=== PATIENT | female | born 1970 | race Caucasian/White ===

== ENCOUNTER 2016-05-08 10:30 | Emergency (ER) | payer OTHER ==
[~2016-05-08] VITALS: Ht 165.1 cm; Wt 62.6 kg
[2016-05-08 10:37] VITALS: TEMP 36.8; Ht 165.1 cm; Wt 62.6 kg
[2016-05-08] MEDS ORDERED: CITA20TA9 PO (11:42)
[2016-05-08] MEDS ORDERED: SODIUM CHLORIDE 0.9% 1000ML 1,000 ML IV STA (12:25)
--- NOTE | 2016-05-08 12:42 | EMERGENCY ROOM VISIT NOTE ---
History Report prepared by Demar: Elina Ritter Under the Supervision of: Dr. Marvin Araya D.O. First contact with patient: 11:40 Chief Complaint: CHEST PAIN Stated Complaint: CHEST PAINS Nursing Triage Summary: Pt c/o chest pain under right arm and around breast, states "It's been everywhere, I had chest pain in the past" "comes and goes but can last a couple hours". Denies SOB, diaphoresis, nausea, dizzines with chest pain. History of Present Illness The patient is a 45 year old female who presents to the Emergency Room with complaints of intermittent right sided chest pain that began one month ago, but became persistent three days ago. She currently rates her discomfort as a 2/10 in severity, but at it's worse, she rates it as a 6/10 in severity. The patient states that one month ago while at work, she noticed central chest pain. She states that the pain eventually subsided on it's own, but states that over the last month it has come and gone intermittently. The patient states that she noticed the pain start three days ago, but states that it has been persistent since. She states that when she is parallel with the floor she has noticed increased chest pain with lying flat or a deep breath. The patient states that she originally thought the pain was musculoskeletal because the she was scrubbing throughout the day. She states that she does cardio three times a week. The patient states that last night she thought the pain was at it's worst, so she took Tylenol that alleviated her symptoms. She states that her pain was there this morning, so she called her PCP and was instructed to come to the emergency department for further work up. The patient denies any recent cough or cold and denies getting her flu shot. She denies any tobacco or recreational drug use. The patient notes that she is an occasional drinker. She states that her last menstrual cycle was a few weeks ago. The patient denies any personal or family history of PEs or DVTs. She notes a family history of heart disease, but denies it being prior to the age of 55. The patient denies any family history of unexplained cardiac . She notes a personal history of mild depression, noting that she is on Celexa for it. Source of History: patient Onset: one month ago, persistent three days ago Position: chest Symptom Intensity: 2/10, at it's worst 09/19 Timing: intermittent Modifying Factors (Worsening): breathing (deep), other (lying flat) Modifying Factors (Relieving): tylenol Review of Systems See above for pertinent positives & negatives. A total of 10 systems reviewed and were otherwise negative. Past Medical & Surgical Medical Problems: (1) Depression Family History FHx: heart disease Social History Smoking Status: Never Smoker Marital Status: single Occupation Status: employed Current/Historical Medications Scheduled Acetaminophen (Acetaminophen), 1 TAB PO Q6 Azithromycin (Zithromax Z-Jarod), 1 PKT PO UD Citalopram Hydrobromide (Celexa), 20 MG PO DAILY Allergies Coded Allergies: Cephalosporins (Verified Allergy, Mild, RASH, 05/08/16) Latex (Verified Allergy, Mild, rash, 05/08/16) Physical Exam Vital Signs Date Time Temp Pulse Resp B/P Pulse Ox O2 Delivery O2 Flow Rate FiO2 05/08/16 14:13 78 05/08/16 12:45 65 16 124/62 100 Room Air 05/08/16 11:03 74 05/08/16 10:37 36.8 62 17 117/77 100 Room Air Physical Exam GENERAL: Patient is well appearing and in no acute distress. HEENT: No acute trauma, normocephalic atraumatic, mucous membranes moist, no nasal congestion, no scleral icterus. NECK: No stridor, no adenopathy, no meningismus, trachea is midline. LUNGS: No dyspnea. Clear to auscultation and equal bilaterally. No wheeze, no rhonchi. HEART: Regular rate and rhythm. No murmurs, rubs, gallops appreciated. ABDOMEN: Soft, nontender, bowel sounds positive, no masses appreciated, no peritonitis. BACK: No midline tenderness, no CVA tenderness EXTREMITIES: Normal motion all extremities, no cyanosis, no edema. NEUROLOGIC: Alert and oriented, no acute motor or sensory deficits, no focal weakness, cranial nerves grossly intact. SKIN: No rash, no jaundice, no diaphoresis. Medical Decision & Procedures ER Provider Diagnostic Interpretation: X ray results and stated below per my interpretation and radiologist interpretation. Other radiology results and stated below per my review and radiologist interpretation: CHEST 2 VIEWS ROUTINE CLINICAL HISTORY: Chest pain. COMPARISON STUDY: No previous studies for comparison. FINDINGS: Lung volumes are normal. There is no pneumothorax or pleural effusion. Cardiac size is normal. Mediastinal contours are normal. There is no evidence of pulmonary edema. There is a vague density within the lateral aspect of the right middle lower lung that measures approximately 4.6 cm. This probably reflects overlying soft tissues. Airspace opacity could appear similar. IMPRESSION: Vague 4.6 cm peripheral opacity within the right mid lung. This probably reflects overlying soft tissue artifact. Airspace opacity could appear similar. Follow-up PA and lateral chest radiographs in one month are recommended. Electronically signed by: Hamilton Cohen M.D. 05/08/2016 1:09 PM Dictated Date/Time: 05/08/2016 1:[address] ANGIOGRAM OF THE CHEST CLINICAL HISTORY: Atypical chest pain. Abnormal chest x-ray. COMPARISON STUDY: Chest x-ray dated 05/08/2016. TECHNIQUE: Following the IV administration of 92 cc of Optiray 320, CT angiogram of the chest was performed from the upper abdomen to the thoracic inlet utilizing the pulmonary embolus protocol. Images are reviewed in the axial, sagittal, and coronal planes. 3-D MIPS images are created and assessed. IV contrast was administered without complication. CT DOSE: 259.93 mGycm FINDINGS: Thyroid: Imaged portions of the thyroid gland are normal in size and attenuation. Thoracic aorta: The thoracic aorta is normal in caliber and demonstrates standard 3-vessel arch anatomy. No dissection is seen. Pulmonary vasculature: The pulmonary trunk is normal in caliber. There are no filling defects identified in main, lobar, or segmental pulmonary branches to suggest pulmonary embolus. Heart: The heart is normal in size and configuration, and without pericardial effusion. Lungs and pleural spaces: There is a trace right pleural effusion and bibasilar atelectasis. No airspace consolidation is identified typical for pneumonia. Minimal peribronchial thickening is observed. The trachea and central airways are clear. Mediastinum: There is no mediastinal lymphadenopathy. [place]: Clear. Axillae: There is no axillary lymphadenopathy. Upper abdomen: Partially visualized upper abdominal viscera is within normal limits. Skeletal structures: No lytic or blastic bony lesions are seen. IMPRESSION: 1. There is no evidence of pulmonary embolus in the main, lobar, or segmental pulmonary arteries. 2. There is a trace right pleural effusion. No airspace consolidation is identified typical for pneumonia. Mild peribronchial thickening suggests reactive airway disease. Clinical correlation will be required. 3. The right subpleural opacity questioned by x-ray could not be corroborated by chest CT and likely represented overlying soft tissue artifact. Electronically signed by: Remy Sanford M.D. 05/08/2016 3:13 PM Dictated Date/Time: 05/08/2016 3:08 PM Laboratory Results 05/08/16 13:13 Red Blood Count 4.75, Mean Corpuscular Volume 89.7, Mean Corpuscular Hemoglobin 31.2, Mean Corpuscular Hemoglobin Concent 34.7, Mean Platelet Volume 10.0, Neutrophils (%) (Auto) 66.2, Lymphocytes (%) (Auto) 26.7, Monocytes (%) (Auto) 5.7, Eosinophils (%) (Auto) 1.1, Basophils (%) (Auto) 0.1, Neutrophils # (Auto) 5.67, Lymphocytes # (Auto) 2.29, Monocytes # (Auto) 0.49, Eosinophils # (Auto) 0.09, Basophils # (Auto) 0.01 05/08/16 13:13 Test 05/08/16 12:43 05/08/16 13:13 05/08/16 14:41 Urine Color YELLOW Urine Appearance CLEAR (CLEAR) Urine pH 5.0 (4.5-7.5) Urine Specific [place] 1.010 (1.000-1.030) Urine Protein NEG (NEG) Urine Glucose (UA) NEG (NEG) Urine Ketones 1+ (NEG) Urine Occult Blood NEG (NEG) Urine Nitrite NEG (NEG) Urine Bilirubin NEG (NEG) Urine Urobilinogen NEG (NEG) Urine Leukocyte Esterase NEG (NEG) Urine Test NEG (NEG) White Blood Count 8.57 K/uL (4.8-10.8) Red Blood Count 4.75 M/uL (4.2-5.4) Hemoglobin 14.8 g/dL (12.0-16.0) Hematocrit 42.6 % (37-47) Mean Corpuscular Volume 89.7 fL (80-100) Mean Corpuscular Hemoglobin 31.2 pg (25-34) Mean Corpuscular Hemoglobin Concent 34.7 g/dl (32-36) Platelet Count 233 K/uL (130-400) Mean Platelet Volume 10.0 fL (7.4-10.4) Neutrophils (%) (Auto) 66.2 % Lymphocytes (%) (Auto) 26.7 % Monocytes (%) (Auto) 5.7 % Eosinophils (%) (Auto) 1.1 % Basophils (%) (Auto) 0.1 % Neutrophils # (Auto) 5.67 K/uL (1.4-6.5) Lymphocytes # (Auto) 2.29 K/uL (1.2-3.4) Monocytes # (Auto) 0.49 K/uL (0.11-0.59) Eosinophils # (Auto) 0.09 K/uL (0-0.5) Basophils # (Auto) 0.01 K/uL (0-0.2) RDW Standard Deviation 38.9 fL (36.4-46.3) RDW Coefficient of Variation 12.0 % (11.5-14.5) Immature Granulocyte % (Auto) 0.2 % Immature Granulocyte # (Auto) 0.02 K/uL (0.00-0.02) Anion Gap 11.0 mmol/L (3-11) Est Creatinine Clear Calc Drug Dose 63.9 ml/min Estimated GFR () 79.6 Estimated GFR (Non- 68.7 BUN/Creatinine Ratio 9.4 (10-20) Calcium Level 8.8 mg/dl (8.5-10.1) Total Bilirubin 0.6 mg/dl (0.2-1) Direct Bilirubin 0.1 mg/dl (0-0.2) Aspartate Amino Transf (AST/SGOT) 13 U/L (15-37) Alanine Aminotransferase (ALT/SGPT) 19 U/L (12-78) Alkaline Phosphatase 58 U/L (45-117) Total Protein 7.3 gm/dl (6.4-8.2) Albumin 4.1 gm/dl (3.4-5.0) Lipase 212 U/L (73-393) Bedside Troponin I 0.000 ng/ml (0-0.045) Laboratory results as reviewed by me. Medications Administered Medications (Trade) Dose Ordered Sig/Mely Route Start Time Stop Time Status Last Admin Dose Admin Sodium Chloride (Nss 1000ml) 1,000 ml @ 999 mls/hr Q1H1M STAT IV 05/08/16 12:25 05/08/16 13:25 DC 05/08/16 12:39 999 MLS/HR ECG Indication: chest pain Rate (beats per minute): 60 Rhythm: normal sinus Findings: other (normal axis, normal intervals) Comparison ECG Date: no prior available ED Course 1225: Ordered Sodium Chloride 1000 ml @ 999 mls/hr IV. 1233: The patient was evaluated in room C8. A complete history and physical exam was performed. 1413: I reevaluated the patient and she is resting comfortably. I discussed the exam findings with her. She is going to have a CT scan. 1559: I reevaluated the patient and she is resting comfortably. I discussed the exam findings with her and I discussed the treatment plan. She verbalized complete understanding and agreement. She is ready to go home. Medical Decision Differential diagnosis: Etiologies such as cardiac ischemia, aortic dissection, pulmonary embolism, pneumonia, pneumothorax, musculoskeletal, infections, pericarditis, myocarditis , esophageal rupture, gastrointestinal, as well as others were entertained. Patient is a 45-year-old female with chief complaint of right-sided chest pain who does not have any high risk factors for cardiac disease, no family history, no tobacco use, exercises regularly. She denies having any upper respiratory cold or sore throat recently. Chest x-ray revealed a possible density in the right long in the area where she was symptomatic. A chest CT was undertaken to further classify this density, it was not seen on CT scan, there was a trace pleural effusion which may represent apparent small parapneumonic effusion, accordingly I will place the patient on a Z-Jarod and ibuprofen for chest pain and to follow-up with her primary care provider in 1-2 weeks. Impression Primary Impression: Pneumonia Additional Impressions: Pleural effusion on right Pleurisy with effusion Scribe Attestation The scribe's documentation has been prepared under my direction and personally reviewed by me in its entirety. I confirm that the note above accurately reflects all work, treatment, procedures, and medical decision making performed by me. Departure Information Dispostion Home / Self-Care Prescriptions Acetaminophen (ACETAMINOPHEN) 500 Mg Tab 1 TAB PO Q6 for 15 Days, #60 TAB Prov: Marvin Araya, D.O. 05/08/16 Azithromycin (ZITHROMAX Z-JAROD) 250 Mg Tab 1 PKT PO UD for 5 Days, #6 TAB Prov: Marvin Araya, D.O. 05/08/16 Referrals Aditi Roa DO (PCP) Forms HOME CARE DOCUMENTATION FORM, IMPORTANT VISIT INFORMATION Patient Instructions ED Chest Pain Pleurisy, ED Pneumonia, [facility] Additional Instructions Follow-up with your primary care provider in 2-3 weeks for repeat chest x-ray. Finish the antibiotics Return for severe chest pain, passing out, or any other concerns Use Tylenol as needed for the chest pain. Problem Qualifiers
[2016-05-08 13:04] LABS: URINE APPEARANCE CLEAR (CLEAR); URINE BILIRUBIN NEG (NEG); URINE COLOR YELLOW; URINE NITRITE NEG (NEG); UROBILINOGEN NEG (NEG)
[2016-05-08 13:06] LABS: MANUAL MICROSCOPIC REQUIRED? NO; REVIEW REQ? NO
--- NOTE | 2016-05-08 13:11 | DIAGNOSTIC IMAGING REPORT ---
CHEST 2 VIEWS ROUTINE CLINICAL HISTORY: Chest pain. COMPARISON STUDY: No previous studies for comparison. FINDINGS: Lung volumes are normal. There is no pneumothorax or pleural effusion. Cardiac size is normal. Mediastinal contours are normal. There is no evidence of pulmonary edema. There is a vague density within the lateral aspect of the right middle lower lung that measures approximately 4.6 cm. This probably reflects overlying soft tissues. Airspace opacity could appear similar. IMPRESSION: Vague 4.6 cm peripheral opacity within the right mid lung. This probably reflects overlying soft tissue artifact. Airspace opacity could appear similar. Follow-up PA and lateral chest radiographs in one month are recommended. Electronically signed by: Hamilton Cohen M.D. 05/08/2016 1:09 PM Dictated Date/Time: 05/08/2016 1:05 PM
[2016-05-08 13:21] LABS: BASO % 0.1 %; BASO ABS # 0.01 K/uL (0-0.2); COMPLETE YES; EOS % 1.1 %; HEMATOCRIT 42.6 % (37-47); IG% 0.2 %; LYMPH % 26.7 %; LYMPH ABS # 2.29 K/uL (1.2-3.4); MEAN CELL VOLUME 89.7 fL (80-100); MEAN CORPUSCULAR HEMOGLOBIN 31.2 pg (25-34); MEAN CORPUSCULAR HGB CONC 34.7 g/dl (32-36); MONO % 5.7 %; NEUT % 66.2 %; PLATELET COUNT 233 K/uL (130-400); RED BLOOD COUNT 4.75 M/uL (4.2-5.4); WHITE BLOOD COUNT 8.57 K/uL (4.8-10.8)
[2016-05-08 13:39] LABS: BUN/CREATININE RATIO 9.4 (10-20); CALCIUM 8.8 mg/dl (8.5-10.1); CREATININE 0.98 mg/dl (0.60-1.20); POTASSIUM 3.5 mmol/L (3.5-5.1)
--- NOTE | 2016-05-08 15:14 | DIAGNOSTIC IMAGING REPORT ---
CT ANGIOGRAM OF THE CHEST CLINICAL HISTORY: Atypical chest pain. Abnormal chest x-ray. COMPARISON STUDY: Chest x-ray dated 05/08/2016. TECHNIQUE: Following the IV administration of 92 cc of Optiray 320, CT angiogram of the chest was performed from the upper abdomen to the thoracic inlet utilizing the pulmonary embolus protocol. Images are reviewed in the axial, sagittal, and coronal planes. 3-D MIPS images are created and assessed. IV contrast was administered without complication. CT DOSE: 259.93 mGycm FINDINGS: Thyroid: Imaged portions of the thyroid gland are normal in size and attenuation. Thoracic aorta: The thoracic aorta is normal in caliber and demonstrates standard 3-vessel arch anatomy. No dissection is seen. Pulmonary vasculature: The pulmonary trunk is normal in caliber. There are no filling defects identified in main, lobar, or segmental pulmonary branches to suggest pulmonary embolus. Heart: The heart is normal in size and configuration, and without pericardial effusion. Lungs and pleural spaces: There is a trace right pleural effusion and bibasilar atelectasis. No airspace consolidation is identified typical for pneumonia. Minimal peribronchial thickening is observed. The trachea and central airways are clear. Mediastinum: There is no mediastinal lymphadenopathy. [place]: Clear. Axillae: There is no axillary lymphadenopathy. Upper abdomen: Partially visualized upper abdominal viscera is within normal limits. Skeletal structures: No lytic or blastic bony lesions are seen. IMPRESSION: 1. There is no evidence of pulmonary embolus in the main, lobar, or segmental pulmonary arteries. 2. There is a trace right pleural effusion. No airspace consolidation is identified typical for pneumonia. Mild peribronchial thickening suggests reactive airway disease. Clinical correlation will be required. 3. The right subpleural opacity questioned by x-ray could not be corroborated by chest CT and likely represented overlying soft tissue artifact. Electronically signed by: Remy Sanford M.D. 05/08/2016 3:13 PM Dictated Date/Time: 05/08/2016 3:08 PM
[2016-05-08] MEDS ORDERED: AZITTAB PO (15:56)
[2016-05-08] MEDS ORDERED: ACET500T57 PO (15:56)
[2016-05-08 16:18] VITALS: BP 115/63; PULSE 71; O2SAT 92
== END 2016-05-08 16:18 | disposition home or self-care (01) ==
LOC: C.EDB 10:31 → C.EDC 16:18
DX: J18.9 Pneumonia, unspecified organism (principal); J90 Pleural effusion, not elsewhere classified; R09.1 Pleurisy; F32.9 Major depressive disorder, single episode, unspecified; Z79.899 Other long term (current) drug therapy; Z88.8 Allergy status to other drugs, medicaments and biological substances; Z91.040 Latex allergy status; Z82.49 Family history of ischemic heart disease and other diseases of the circulatory system